=== PATIENT | male | born 1960 | race Caucasian/White ===

== ENCOUNTER 2025-09-01 14:07 | Outpatient (AMB) | payer MEDICARE, SELFPAY ==
--- OUTSIDE RECORDS SUMMARY | 2024-12-07 03:32 | XMS_ITS ---
[facility] Address [address] [place] [address] Care Team Providers Care Stockroom Attendant Name Role Phone Filipe Duenas Primary Care Provider REASON FOR VISIT Refills MEDICATIONS Medication SIG (Take, Route, Frequency, Duration) Notes Start Date End Date Status clonazePAM 0.5 MG 1 tablet Orally Twic e a day for 90 Days 12/07/2024 Active QUEtiapine Fumarate 25 MG 1 tablet at be dtime Orally Once a day for 90 days Active Encounters Encounter Location Date Provider [facility] [address] [place] [address] 12/07/2024 Filipe Duenas Anxiety disorder, unspecified F41.9 ASSESSMENTS Encounter Date Diagnosis Assessment Notes Treatment Notes Treatment Clinical Notes Section Notes 12/07/2024 Anxiety disorder, unspecified (ICD-10 - F41.9) PLAN OF TREATMENT Medication Medication Name Sig Start Date Stop Date Notes clonazePAM 0.5 MG 1 tablet Orally Twic e a day for 90 Days 12/07/2024 QUEtiapine Fumarate 25 MG 1 tablet at be dtime Orally Once a day for 90 days Next Appt Details Provider Name:Filipe covarrubias, 11/18/2025 03:45:00 PM, [address] [place], [address],
--- OUTSIDE RECORDS SUMMARY | 2025-02-09 11:15 | XMS_ITS ---
Author [facility] Address [address] [place] [address] Care Team Providers Care Shipfitter Apprentice Name Role Phone Filipe Duenas Primary Care Provider RESULTS Component Value Reference Range Notes Luteinizing Hormone(LH)-[id number] Reviewed date:04/18/2025 11:49:28 AM Interpretation: Performing Lab:[facility] [address], Phone - [phone], Director - [facility] Notes/Report: Test(s) 073609-Irhxibqdfule, Total, LC/MS was developed and its performance characteristics determined by [employer]. It has not been cleared or approved by the Food and Drug Administration. LH 5.1 1.7-8.6 mIU/mL Testosterone, Free+Total LC/ MS-[id number] Reviewed date:04/18/2025 11:49:28 AM Interpretation: Performing Lab:[facility] [address], Phone - [phone], Director - [facility] Notes/Report: Test(s) 104935-Pfheteculbaf, Total, LC/MS was developed and its performance characteristics determined by [employer]. It has not been cleared or approved by the Food and Drug Administration. Testosterone, Total, LC/MS 666.1 264.0-916.0 ng /dL This [facility] LC/MS-MS method is currently certified by the CDC Hormone Standardization Program (HoSt). Adult male reference interval is based on a population of healthy nonobese males (BMI <30) between 19 and 39 years old. Lucero et.al. JCEM 2017,102;9524-0950. PMID: 51790185. Free Testosterone(Direct) 7.0 6.6-18.1 pg/mL REASON FOR VISIT (IN OFFICE), Follow Up MEDICATIONS Medication SIG (Take, Route, Frequency, Duration) Notes Start Date End Date Status Pantoprazole Sodium 40 MG 1 tablet Orall y Once a day Active Proctosol HC 2.5 % 1 application to aff ected area Rectal Twice a day 04/08/2018 Active Stiolto Respimat 2.5-2.5 MCG/ACT INHALE 2 PUFFS BY MOUTH EVERY DAY for 30 Active Venlafaxine HCl ER 150 MG TAKE 1 CAPSULE BY MOUTH EVERY DAY WITH FOOD Active Megestrol Acetate 40 MG/ML SHAKE LIQUID AND TAKE 10 ML BY MOUTH TWICE DAILY for 90 Active Venlafaxine HCl ER 150 MG TAKE 1 CAPSULE BY MOUTH ONCE DAILY WITH FOOD 30 DAYS for 30 Active Vitamin D3 15601 UNIT 1 capsule Orally T wice a week Active Viagra 100 MG 1 tablet as needed O rally Once a day Active clonazePAM 0.5 MG 1 tablet as needed O rally Twice a day for 30 days 02/09/2025 Active CoQ10 200 MG 1 capsule with a fox l Orally Once a day Active QUEtiapine Fumarate 25 MG TAKE 1 TABLET BY MOUTH EVERY DAY AT BEDTIME Active QUEtiapine Fumarate 25 MG 1 tablet at be dtime Orally Once a day for 90 days Active Stiolto Respimat 2.5-2.5 MCG/ACT 2 puffs Inhalation Once a day Active ProAir HFA 108 (90 Base) MCG/ACT 2 puffs as needed Inhalation every 6 hrs Active VITAL SIGNS Blood pressure systolic 110 mm Hg 02/10/20 25 Blood pressure diastolic 64 mm Hg 025 Heart Rate 78 /min 02/09/2025 Height 71 in 02/09/2025 Weight 161.6 lbs 02/09/2025 BMI 22.54 kg/m2 02/09/2025 Encounters Encounter Location Date Provider Diagnosis [facility]ARREN Saini [address] [place] [phone] 02/09/2025 Filipe Duenas Major depressive disorder, single episode, unspecified F32.9 ; Mixed hyperlipidemia E78.2 ; Erectile dysfunction, unspecified erectile dysfunction type N52.9 ; Cancer, 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 ; Anxiety disorder, unspecified F41.9 ; Chronic obstructive pulmonary disease, unspecified COPD type J44.9 ; Primary insomnia F51.01 ; Anxiety F41.9 ; Chronic fatigue R53.82 ; Vitamin D deficiency E55.9 and Tobacco abuse Z72.0 ASSESSMENTS Encounter Date Diagnosis Assessment Notes Treatment Notes Treatment Clinical Notes Section Notes 02/09/2025 Major depressive disorder, single episode, unspecified (ICD-10 - F32.9) 02/09/2025 Mixed hyperlipidemia (ICD-10 - E78.2) 02/09/2025 Erectile dysfunction, unspecified erectile dysfunction type (ICD-10 - N52.9) 02/09/2025 Cancer, epiglottis (ICD-10 - C32.1) 02/09/2025 Anxiety disorder, unspecified (ICD-10 - F41.9) 02/09/2025 Chronic obstructive pulmonary disease, unspecified COPD type (ICD-10 - J44.9) 02/09/2025 Primary insomnia (ICD-10 - F51.01) 02/09/2025 Anxiety (ICD-10 - F41.9) 02/09/2025 Chronic fatigue (ICD-10 - R53.82) 02/09/2025 Vitamin D deficiency (ICD-10 - E55.9) 02/09/2025 Tobacco abuse (ICD-10 - Z72.0) 02/09/2025 Other This chart has been transcribed by a computerized dictation system. There are likely to be multiple geological manager inaccuracies despite chart review. PLAN OF TREATMENT Medication Medication Name Sig Start Date Stop Date Notes Pantoprazole Sodium 40 MG 1 tablet Orally Once a day Venlafaxine HCl ER 150 MG TAKE 1 CAPSULE BY MOUTH EVERY DAY WITH FOOD Vitamin D3 61512 UNIT 1 capsule Orally T wice a week Viagra 100 MG 1 tablet as needed O rally Once a day clonazePAM 0.5 MG 1 tablet as needed O rally Twice a day for 30 days 02/09/2025 CoQ10 200 MG 1 capsule with a fox l Orally Once a day QUEtiapine Fumarate 25 MG TAKE 1 TABLET BY MOUTH EVERY DAY AT BEDTIME Stiolto Respimat 2.5-2.5 MCG/ACT 2 puffs Inhalation Once a day ProAir HFA 108 (90 Base) MCG/ACT 2 puffs as needed Inhalation every 6 hrs Treatment Notes Assessment Notes Other This chart has been transcribed by a computerized dictation system. There are likely to be multiple geological manager inaccuracies despite chart review. Next Appt Details Follow Up: 4 Weeks, Reason: Follow-up Provider Name:Filipe covarrubias, 11/18/2025 03:45:00 PM, [address] [place] [address], [phone], MEDICATIONS ADMINISTERED Medication Instructions Date of Administration Dosage Notes B12 02/09/2025 1 mL Progress Notes * Examination Category Sub-Category Detail Notes Category Not es General Examination GENERAL APPEARANCE: in no ac [place] distress, well developed, well nourished HEAD: normocephalic, atrau matic EYES: pupils equal, round, reactive to light and accommodation THROAT: clear, no erythema, uvula midline, no exudate NECK/THYROID: neck supple, no thyr omegaly, trachea midline, no carotid bruit HEART: no murmurs, regular rate and rhythm, S1, S2 normal LUNGS: clear to auscultatio n bilaterally ABDOMEN: soft, nontender, non distended, no organomegaly , bowel sounds present NEUROLOGIC: alert and oriented x 3, nonfocal SKIN: no suspicious lesion s, warm and dry EXTREMITIES: no clubbing, cyanosi s, or edema PERIPHERAL PULSES: normal, 2+ throughou t MUSCULOSKELETAL: normal, full range o f motion LYMPH NODES: no cervical, axillar y, supraclavicular or inguinal adenopathy PSYCH: cognitive function i ntact, mood/affect full range ORAL CAVITY: mucosa moist, no les ions, palate normal, tongue in midline, well papillated History and Physical Notes * HPI (History of Present Illness) Category Sub-Category Detail Notes Category Not es Symptom(s) 65-year-old mal e patient with history of epiglottic cancer status post RT, anxiety, depression, hyperlipidemia, COPD, and postural hypotension is here for follow-up. Today he tells me that his a stopped taking Florinef and metolazone. His blood pressure is well controlled. He complains of increased fatigue. I discussed his lab results with him which show low vitamin B12 level. I advised the patient to start B12 injections and he received his first injection today. His chronic respiratory symptoms are well-controlled on current inhalers. Patient's anxiety and depression is a stable on current medications. He denies chest pain, palpitation, shortness of breath. Patient is interested to know if he is known testosterone which could be contributing to his chronic fatigue. I ordered testosterone and luteinizing hormone to be done at his convenience.
--- OUTSIDE RECORDS SUMMARY | 2025-03-15 10:45 | XMS_ITS ---
Author Organization [facility], Address [address] [place] [address] Care Team Providers Care Technician Semiconductor Development Name Role Phone Filipe Duenas Primary Care Provider ALLERGIES No Known Allergies REASON FOR VISIT (IN OFFICE), Follow Up MEDICATIONS Medication SIG (Take, Route, Frequency, Duration) Notes Start Date End Date Status CoQ10 200 MG 1 capsule with a fox l Orally Once a day Active clonazePAM 0.5 MG 1 tablet as needed O rally Twice a day for 30 days Active Proctosol HC 2.5 % 1 application to aff ected area Rectal Twice a day 04/08/2018 Active Megestrol Acetate 40 MG/ML SHAKE LIQUID AND TAKE 10 ML BY MOUTH TWICE DAILY for 90 Active Stiolto Respimat 2.5-2.5 MCG/ACT INHALE 2 PUFFS BY MOUTH EVERY DAY for 30 Active Pantoprazole Sodium 40 MG 1 tablet Orall y Once a day Active Venlafaxine HCl ER 150 MG TAKE 1 CAPSULE BY MOUTH EVERY DAY WITH FOOD Active ProAir HFA 108 (90 Base) MCG/ACT 2 puffs as needed Inhalation every 6 hrs Active Stiolto Respimat 2.5-2.5 MCG/ACT 2 puffs Inhalation Once a day Active QUEtiapine Fumarate 25 MG TAKE 1 TABLET BY MOUTH EVERY DAY AT BEDTIME Active Viagra 100 MG 1 tablet as needed O rally Once a day Active Vitamin D3 66692 UNIT 1 capsule Orally T wice a week Active QUEtiapine Fumarate 25 MG TAKE 1 TABLET BY MOUTH EVERY DAY AT BEDTIME FOR 90 DAYS for 90 Active Venlafaxine HCl ER 150 MG TAKE 1 CAPSULE BY MOUTH ONCE DAILY WITH FOOD 30 DAYS for 30 Active clonazePAM 0.5 MG TAKE 1 TABLET BY FREDY TH TWICE DAILY for 30 03/12/2025 Active VITAL SIGNS Blood pressure systolic 110 mm Hg 03/15/20 25 Blood pressure diastolic 68 mm Hg 025 Heart Rate 76 /min 03/15/2025 Height 71 in 03/15/2025 Weight 161 lbs 03/15/2025 BMI 22.45 kg/m2 03/15/2025 Encounters Encounter Location Date Provider Diagnosis [facility] [address] 03/15/2025 Filipe Duenas Major depressive disorder, single episode, [...] Treatment Notes Treatment Clinical Notes Section Notes 03/15/2025 Major depressive disorder, single episode, unspecified (ICD-10 - F32.9) 03/15/2025 Mixed hyperlipidemia (ICD-10 - E78.2) 03/15/2025 Erectile dysfunction, unspecified erectile dysfunction type (ICD-10 - N52.9) 03/15/2025 Cancer, epiglottis (ICD-10 - C32.1) 03/15/2025 Anxiety disorder, unspecified (ICD-10 - F41.9) 03/15/2025 Chronic obstructive pulmonary disease, unspecified COPD type (ICD-10 - J44.9) 03/15/2025 Primary insomnia (ICD-10 - F51.01) 03/15/2025 Anxiety (ICD-10 - F41.9) 03/15/2025 Chronic fatigue (ICD-10 - R53.82) 03/15/2025 Vitamin D deficiency (ICD-10 - E55.9) 03/15/2025 Tobacco abuse (ICD-10 - Z72.0) 03/15/2025 Other This chart has been transcribed by a computerized dictation system. There are likely to be multiple drive thru order taker inaccuracies despite chart review. PLAN OF TREATMENT Medication Medication Name Sig Start Date Stop Date Notes CoQ10 200 MG 1 capsule with a fox l Orally Once a day clonazePAM 0.5 MG 1 tablet as needed O rally Twice a day for 30 days Pantoprazole Sodium 40 MG 1 tablet Orally Once a day Venlafaxine HCl ER 150 MG TAKE 1 CAPSULE BY MOUTH EVERY DAY WITH FOOD ProAir HFA 108 (90 Base) MCG/ACT 2 puffs as needed Inhalation every 6 hrs Stiolto Respimat 2.5-2.5 MCG/ACT 2 puffs Inhalation Once a day QUEtiapine Fumarate 25 MG TAKE 1 TABLET BY MOUTH EVERY DAY AT BEDTIME Viagra 100 MG 1 tablet as needed O rally Once a day Vitamin D3 42898 UNIT 1 capsule Orally T wice a week Treatment Notes Assessment Notes Other This chart has been transcribed by a computerized dictation system. There are likely to be multiple drive thru order taker inaccuracies despite chart review. Next Appt Details Follow Up: 4 Weeks, Reason: Follow-up Provider Name:Filipe covarrubias, 11/18/2025 03:45:00 PM, [address] [place] [address], [phone], MEDICATIONS ADMINISTERED Medication Instructions Date of Administration Dosage Notes B12 03/15/2025 1.0 mL Progress Notes * Examination Category Sub-Category Detail Notes Category Not es General Examination GENERAL APPEARANCE: in no ac [place] distress, well developed, well nourished HEAD: normocephalic, [...] and postural hypotension is here for follow-up. Patient tells me that he's feeling somewhat more energetic since he started getting B12 injections last month. He was supposed to check his testosterone level but forgot about it. I encouraged him to get his absolute as soon as possible. He denies chest pain, palpitation, shortness of breath. His GERD symptoms are well-controlled on current dose of pantoprazole.
--- OUTSIDE RECORDS SUMMARY | 2025-03-29 09:12 | XMS_ITS ---
[facility] Address [address] [place] [address] Care Team Providers Care Size Worker Name Role Phone Filipe Duenas Primary Care Provider REASON FOR VISIT refill MEDICATIONS Medication SIG (Take, Route, Frequency, Duration) Notes Start Date End Date Status Venlafaxine HCl ER 150 MG 1 capsule with food Orally Once a day for 90 Days Active Encounters Encounter Location Date Provider [facility] [address] [place] [address] 03/29/2025 Filipe Duenas Major depressive disorder, single episode, unspecified F32.9 ASSESSMENTS Encounter Date Diagnosis Assessment Notes Treatment Notes Treatment Clinical Notes Section Notes 03/29/2025 Major depressive disorder, single episode, unspecified (ICD-10 - F32.9) PLAN OF TREATMENT Medication Medication Name Sig Start Date Stop Date Notes Venlafaxine HCl ER 150 MG TAKE 1 CAPSULE BY MOUTH ONCE DAILY WITH FOOD 30 DAYS Stiolto Respimat 2.5-2.5 MCG/ACT INHALE 2 PUFFS BY MOUTH EVERY DAY Venlafaxine HCl ER 150 MG 1 capsule with food Orally Once a day for 90 Days Next Appt Details Provider Name:Filipe covarrubias, 11/18/2025 03:45:00 PM, [address] [place], [address],
--- OUTSIDE RECORDS SUMMARY | 2025-04-14 10:45 | XMS_ITS ---
Author Organization [facility], Address [address] [place] [address] Care Team Providers Care Arc And Gas Welder Name Role Phone Filipe Duenas Primary Care Provider REASON FOR VISIT (IN OFFICE), Follow Up MEDICATIONS Medication SIG (Take, Route, Frequency, Duration) Notes Start Date End Date Status Megestrol Acetate 40 MG/ML SHAKE LIQUID AND TAKE 10 ML BY MOUTH TWICE DAILY for 90 Active Vitamin D3 08189 UNIT 1 capsule Orally T wice a week Active clonazePAM 0.5 MG TAKE 1 TABLET BY FREDY TH TWICE DAILY for 30 03/12/2025 Active Viagra 100 MG 1 tablet as needed O rally Once a day Active QUEtiapine Fumarate 25 MG TAKE 1 TABLET BY MOUTH EVERY DAY AT BEDTIME FOR 90 DAYS for 90 Active QUEtiapine Fumarate 25 MG TAKE 1 TABLET BY MOUTH EVERY DAY AT BEDTIME Active Stiolto Respimat 2.5-2.5 MCG/ACT 2 puffs Inhalation Once a day Active Proctosol HC 2.5 % 1 application to aff ected area Rectal Twice a day 04/08/2018 Active clonazePAM 0.5 MG 1 tablet as needed O rally Twice a day for 30 days Active CoQ10 200 MG 1 capsule with a fox l Orally Once a day Active ProAir HFA 108 (90 Base) MCG/ACT 2 puffs as needed Inhalation every 6 hrs Active Venlafaxine HCl ER 150 MG TAKE 1 CAPSULE BY MOUTH EVERY DAY WITH FOOD Active Pantoprazole Sodium 40 MG 1 tablet Orall y Once a day Active VITAL SIGNS Blood pressure systolic 120 mm Hg 04/14/20 25 Blood pressure diastolic 80 mm Hg 025 Heart Rate 80 /min 04/14/2025 Height 71 in 04/14/2025 Weight 166 lbs 04/14/2025 BMI 23.15 kg/m2 04/14/2025 Encounters Encounter Location Date Provider Diagnosis [facility] [address] [address] 04/14/2025 Filipe Duenas Major depressive disorder, single episode, [...] Treatment Notes Treatment Clinical Notes Section Notes 04/14/2025 Major depressive disorder, single episode, unspecified (ICD-10 - F32.9) 04/14/2025 Mixed hyperlipidemia (ICD-10 - E78.2) 04/14/2025 Erectile dysfunction, unspecified erectile dysfunction type (ICD-10 - N52.9) 04/14/2025 Cancer, epiglottis (ICD-10 - C32.1) 04/14/2025 Anxiety disorder, unspecified (ICD-10 - F41.9) 04/14/2025 Chronic obstructive pulmonary disease, unspecified COPD type (ICD-10 - J44.9) 04/14/2025 Primary insomnia (ICD-10 - F51.01) 04/14/2025 Anxiety (ICD-10 - F41.9) 04/14/2025 Chronic fatigue (ICD-10 - R53.82) 04/14/2025 Vitamin D deficiency (ICD-10 - E55.9) 04/14/2025 Tobacco abuse (ICD-10 - Z72.0) 04/14/2025 Other This chart has been transcribed by a computerized dictation system. There are likely to be multiple podiatric assistant inaccuracies despite chart review. PLAN OF TREATMENT Medication Medication Name Sig Start Date Stop Date Notes Vitamin D3 17133 UNIT 1 capsule Orally T wice a week Viagra 100 MG 1 tablet as needed O rally Once a day QUEtiapine Fumarate 25 MG TAKE 1 TABLET BY MOUTH EVERY DAY AT BEDTIME Stiolto Respimat 2.5-2.5 MCG/ACT 2 puffs Inhalation Once a day clonazePAM 0.5 MG 1 tablet as needed O rally Twice a day for 30 days CoQ10 200 MG 1 capsule with a fox l Orally Once a day ProAir HFA 108 (90 Base) MCG/ACT 2 puffs as needed Inhalation every 6 hrs Venlafaxine HCl ER 150 MG TAKE 1 CAPSULE BY MOUTH EVERY DAY WITH FOOD Pantoprazole Sodium 40 MG 1 tablet Orally Once a day Treatment Notes Assessment Notes Other This chart has been transcribed by a computerized dictation system. There are likely to be multiple podiatric assistant inaccuracies despite chart review. Next Appt Details Follow Up: 4 Weeks, Reason: Follow-up [facility] Dr[facility] Duenas Provider Name:Filipe covarrubias, 11/18/2025 03:45:00 PM, [address] [place] [address], [phone], MEDICATIONS ADMINISTERED Medication Instructions Date of Administration Dosage Notes B12 04/14/2025 1.0 mL Progress Notes * Examination Category Sub-Category Detail Notes Category Not es General Examination GENERAL APPEARANCE: in no ac [place] distress, well developed, well nourished HEAD: normocephalic, [...] and postural hypotension is here for follow-up. She tells me that he gave his labs yesterday and the results are pending. He also tells me that he has a started feeling better since he has been getting B12 injections. Today he complains of muscle cramps. I advised him to try [id number] magnesium glycinate. I advised him to increase his electrolyte intake. Patient's anxiety and depression is well-controlled with current medications. His insomnia is is well controlled on current medications. He denies chest pain, palpitation, or shortness of breath.
--- OUTSIDE RECORDS SUMMARY | 2025-05-12 10:45 | XMS_ITS ---
Author Organization [facility] Address [address] [place] [address] Care Team Providers Care Pari Mutuel Clerk Name Role Phone Filipe Duenas Primary Care Provider [phone] ALLERGIES No Known Allergies RESULTS Component Value Reference Range Notes Iron and TIBC-[id number] Reviewed date:05/13/2025 12:42:34 PM Interpretation: Performing Lab:[facility], [address] [facility], Phone - [phone], Director - MDJodry Notes/Report: Iron Bind.Cap.(TIBC) 277 250-450 ug/dL UIBC 200 111-343 ug/dL Iron 77 38-169 ug/dL Iron Saturation 28 15-55 % Ferritin-[id number] Reviewed date:05/13/2025 12:42:34 PM Interpretation: Performing Lab:[facility], [address] [facility], Phone - [phone], Director - MDJodry Notes/Report: Ferritin 168 30-400 ng/mL Vitamin D, 84-[id number] Reviewed date:05/13/2025 12:42:35 PM Interpretation: Performing Lab:[facility], [address] [facility], Phone - [phone], Director - MDJodry Notes/Report: Vitamin D, 25-Hydroxy 10.0 30.0-100.0 ng/mL Vitamin D deficiency has been defined by the [facility] and an Endocrine Society practice guideline as a level of serum 25-OH vitamin D less than 20 ng/mL (1,2). The Endocrine Society went on to further define vitamin D insufficiency as a level between 21 and 29 ng/mL (2). 1. IOM ([facility]). 2010. Dietary reference intakes for calcium and D. [place]: The National Academies Press. 2. Lidia MF, Heather BELLA, Betsey HUTCHINSON, et al. Evaluation, treatment, and prevention of vitamin D deficiency: an Endocrine Society clinical practice guideline. JCEM. 2010; 96(7):1911-30. Vitamin B12 and Folate-91909 0 Reviewed date:05/13/2025 12:42:35 PM Interpretation: Performing Lab:[facility], [address] [place] [address], Phone - [phone], Director - [facility] Notes/Report: Vitamin B12 >2000 232-1245 pg/mL Folate (Folic Acid), Serum 5.3 >3.0 ng/mL A serum folate concentration of less than 3.1 ng/mL is considered to represent clinical deficiency. CBC with Diff, Platelet, NLR -[id number] Reviewed date:05/13/2025 12:42:35 PM Interpretation: Performing Lab:[facility], [address] [place] [address], [facility], Phone - [phone], [facility] Notes/Report: WBC 6.5 3.4-10.8 x10E3/uL RBC 5.08 4.14-5.80 x10E6/uL Hemoglobin 15.5 13.0-17.7 g/dL Hematocrit 46.9 37.5-51.0 % MCV 92 79-97 fL MCH 30.5 26.6-33.0 pg MCHC 33.0 31.5-35.7 g/dL RDW 15.6 11.6-15.4 % Platelets 175 150-450 x10E3/uL Neutrophils 61 Not Estab. % Lymphs 25 Not Estab. % Monocytes 11 Not Estab. % Eos 2 Not Estab. % Basos 1 Not Estab. % Immature Cells Neutrophils (Absolute) 4.0 1.4-7.0 x10E3/uL Lymphs (Absolute) 1.6 0.7-3.1 x10E3/uL Neut/Lymph Ratio 2.5 0.0-2.9 ratio Published COVID-19 studies suggest: Low likelihood of severe COVID-19 disease progression 0.0-2.9 High likelihood of severe COVID-19 disease progression >4.9 Monocytes(Absolute) 0.7 0.1-0.9 x10E3/uL Eos (Absolute) 0.1 0.0-0.4 x10E3/uL Baso (Absolute) 0.1 0.0-0.2 x10E3/uL Immature Granulocytes 0 Not Estab. % Immature Grans (Abs) 0.0 0.0-0.1 x10E3/uL NRBC Hematology Comments: REASON FOR VISIT (IN OFFICE), Follow Up MEDICATIONS Medication SIG (Take, Route, Frequency, Duration) Notes Start Date End Date Status CoQ10 200 MG 1 capsule with a fox l Orally Once a day Active clonazePAM 0.5 MG 1 tablet as needed O rally Twice a day for 30 days Active Stiolto Respimat 2.5-2.5 MCG/ACT 2 puffs Inhalation Once a day Active QUEtiapine Fumarate 25 MG TAKE 1 TABLET BY MOUTH EVERY DAY AT BEDTIME Active ProAir HFA 108 (90 Base) MCG/ACT 2 puffs as needed Inhalation every 6 hrs Active Venlafaxine HCl ER 150 MG TAKE 1 CAPSULE BY MOUTH EVERY DAY WITH FOOD Active Pantoprazole Sodium 40 MG 1 tablet Orall y Once a day Active Viagra 100 MG 1 tablet as needed O rally Once a day Active Vitamin D3 79749 UNIT 1 capsule Orally T wice a week Active clonazePAM 0.5 MG TAKE 1 TABLET BY FREDY TH TWICE DAILY for 30 03/12/2025 Active Proctosol HC 2.5 % 1 application to aff ected area Rectal Twice a day 04/08/2018 Active Megestrol Acetate 40 MG/ML SHAKE LIQUID AND TAKE 10 ML BY MOUTH TWICE DAILY for 90 Active Vitamin B12 1000 MCG 1 tablet Orally Onc e a day for 90 Days 05/12/2025 Active QUEtiapine Fumarate 25 MG TAKE 1 TABLET BY MOUTH EVERY DAY AT BEDTIME FOR 90 DAYS for 90 Active VITAL SIGNS Blood pressure systolic 120 mm Hg 05/12/20 25 Blood pressure diastolic 80 mm Hg 025 Heart Rate 84 /min 05/12/2025 Height 71 in 05/12/2025 Weight 163.8 lbs 05/12/2025 BMI 22.84 kg/m2 05/12/2025 Encounters Encounter Location Date Provider Diagnosis [address] [address] 05/12/2025 Filipe Duenas Major depressive disorder, single episode, unspecified F32.9 ; Mixed hyperlipidemia E78.2 ; Erectile dysfunction, unspecified erectile dysfunction type N52.9 ; Cancer, 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 ; Anxiety disorder, unspecified F41.9 ; Chronic obstructive pulmonary disease, unspecified COPD type J44.9 ; Primary insomnia F51.01 ; Anxiety F41.9 ; Chronic fatigue R53.82 ; Vitamin D deficiency E55.9 ; Tobacco abuse Z72.0 and Vitamin B12 deficiency E53.8 ASSESSMENTS Encounter Date Diagnosis Assessment Notes Treatment Notes Treatment Clinical Notes Section Notes 05/12/2025 Major depressive disorder, single episode, unspecified (ICD-10 - F32.9) 05/12/2025 Mixed hyperlipidemia (ICD-10 - E78.2) 05/12/2025 Erectile dysfunction, unspecified erectile dysfunction type (ICD-10 - N52.9) 05/12/2025 Cancer, epiglottis (ICD-10 - C32.1) 05/12/2025 Anxiety disorder, unspecified (ICD-10 - F41.9) 05/12/2025 Chronic obstructive pulmonary disease, unspecified COPD type (ICD-10 - J44.9) 05/12/2025 Primary insomnia (ICD-10 - F51.01) 05/12/2025 Anxiety (ICD-10 - F41.9) 05/12/2025 Chronic fatigue (ICD-10 - R53.82) 05/12/2025 Vitamin D deficiency (ICD-10 - E55.9) 05/12/2025 Tobacco abuse (ICD-10 - Z72.0) 05/12/2025 Vitamin B12 deficiency (ICD-10 - E53.8) 05/12/2025 Other This chart has been transcribed by a computerized dictation system. PLAN OF TREATMENT Medication Medication Name Sig Start Date Stop Date Notes CoQ10 200 MG 1 capsule with a fox l Orally Once a day clonazePAM 0.5 MG 1 tablet as needed O rally Twice a day for 30 days Stiolto Respimat 2.5-2.5 MCG/ACT 2 puffs Inhalation Once a day QUEtiapine Fumarate 25 MG TAKE 1 TABLET BY MOUTH EVERY DAY AT BEDTIME ProAir HFA 108 (90 Base) MCG/ACT 2 puffs as needed Inhalation every 6 hrs Venlafaxine HCl ER 150 MG TAKE 1 CAPSULE BY MOUTH EVERY DAY WITH FOOD Pantoprazole Sodium 40 MG 1 tablet Orally Once a day Viagra 100 MG 1 tablet as needed O rally Once a day Vitamin D3 29795 UNIT 1 capsule Orally T wice a week Vitamin B12 1000 MCG 1 tablet Orally Onc e a day for 90 Days 05/12/2025 Treatment Notes Assessment Notes Other This chart has been transcribed by a computerized dictation system. Next Appt Details Follow Up: 3 Months, Reason: Follow-up wi Dr. Duenas Provider Name:Filipe covarrubias, 11/18/2025 03:45:00 PM, [address] [place] [address], [phone], Progress Notes * Examination Category Sub-Category Detail Notes Category Not es General Examination GENERAL APPEARANCE: in no ac andrea distress, well developed, well nourished HEAD: normocephalic, [...] postural hypotension is here for follow-up. Patient has a started feeling more energetic since he has been getting B12 injections at her office. I discussed his lab results with him during the visit exchange in that his testosterone level is quite good considering his age. He doesn't at the weekdays he is feeling fine but weekends he feels very tired. Patient has a very physical job. In 2 gets frequent breaks while he is at work. I ordered repeat CBC and ferritin iron studies B12 and vitamin D and folic acid to be done today. Advise patient to start taking oral B12. His anxiety and depression is well controlled. He denies chest pain, palpitation, or shortness of breath.
--- OUTSIDE RECORDS SUMMARY | 2025-06-17 09:25 | XMS_ITS ---
Author Organization [facility] Address [address] [place] [address] Care Team Providers Care X Ray Technician Name Role Phone Filipe Duenas Primary Care Provider [phone] REASON FOR VISIT temp rx MEDICATIONS Medication SIG (Take, Route, Fr equency, Duration) Notes Start Date End Date Status clonazePAM 0.5 MG 1 tablet as needed O rally Twice a day for 3 days 06/17/2025 Active Encounters Encounter Location Date Provider [facility] [address] [place] [address] 06/17/2025 Filipe Duenas Anxiety disorder, unspecified F41.9 ASSESSMENTS Encounter Date Diagnosis Assessment Notes Treatment Notes Treatment Clinical Notes Section Notes 06/17/2025 Anxiety disorder, unspecified (ICD-10 - F41.9) PLAN OF TREATMENT Medication Medication Name Sig Start Date Stop Date Notes clonazePAM 0.5 MG 1 tablet as needed O rally Twice a day for 3 days 06/17/2025 Next Appt Details Provider Name:Filipe covarrubias, 11/18/2025 03:45:00 PM, [address] [place], [phone],
--- OUTSIDE RECORDS SUMMARY | 2025-06-24 04:16 | XMS_ITS ---
Author Organization [facility] Address [address] [place] [address] Care Team Providers Care Guitar Player Name Role Phone Filipe Duenas Primary Care Provider [phone] REASON FOR VISIT Refills MEDICATIONS Medication SIG (Take, Route, Fr equency, Duration) Notes Start Date End Date Status clonazePAM 0.5 MG 1 tablet as needed O rally Twice a day for 30 days 06/24/2025 Active Encounters Encounter Location Date Provider [facility] [address] [place] [address] 06/24/2025 Filipe Duenas Anxiety disorder, unspecified F41.9 ASSESSMENTS Encounter Date Diagnosis Assessment Notes Treatment Notes Treatment Clinical Notes Section Notes 06/24/2025 Anxiety disorder, unspecified (ICD-10 - F41.9) PLAN OF TREATMENT Medication Medication Name Sig Start Date Stop Date Notes clonazePAM 0.5 MG 1 tablet as needed O rally Twice a day for 30 days 06/24/2025 Next Appt Details Provider Name:Filipe covarrubias, 11/18/2025 03:45:00 PM, [address] [place] [address], [phone],
--- OUTSIDE RECORDS SUMMARY | 2025-08-11 11:00 | XMS_ITS ---
Author Organization [facility] Address [address] [place] [address] Care Team Providers Care Experienced Truck Driver Name Role Phone Filipe Duenas Primary Care Provider REASON FOR VISIT (IN OFFICE), Follow Up Encounters Encounter Location Date Provider Diagnosis [facility] [address] [place] [address] 08/11/20 Filipe Duenas PLAN OF TREATMENT Next Appt Details Provider Name:Filipe covarrubias, 11/18/2025 03:45:00 PM, [address] [place], [address],
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
--- NOTE | 2025-09-01 14:10 | AM.OFFWIN_ITS ---
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 Allergies No Known Allergies Allergy (Verified 09/01/25 14:18) HPI TOP KNITTER-metal object stuck rt side of face 2 HPI0 Details 65 year old male patient presents to the [place] [facility] with report of a metal object stuck in his cheek. He states that About 2 weeks ago, he was doing some work cutting stone, and using a maddy blade cutter, and 2 of the teeth from the blade came off, and he thinks that one hit him in the right side of his cheek. At the time, he felt that the injury was just superficial, and he treated the external injury, which ultimately scabbed and has fallen off. Recently however, he has felt a protrusion on the inside of his mouth on the lateral aspect of his right gums. He stated the upon looking in the mirror, he can see the tooth blade lodged in his gums. He is up-to-date on the tetanus vaccine. Denies any fevers / chills. States that the inside of his mouth on that right side does feel swollen. Review of Systems Const All systems reviewed & are unremarkable except as noted in HPI and below Physical Exam Vital Signs: Last Vital Signs Pulse 94 09/01/25 14:13 BP 102/78 09/01/25 14:13 Pulse Ox 95 09/01/25 14:13 Oxygen Delivery Method Room Air 09/01/25 14:13 BMI result Body Mass Index 23.7 Const General: cooperative, healthy appearing and no acute distress HEENT Head: Yes normal to inspection Ears: hearing grossly normal bilaterally General nose exam: Normal external nose present Mouth/tongue images: 2 1. foreign object Teeth and gingiva: abnormal tooth and associated gingiva (multiple teeth removed, foreign object visible/lodged in r side of oral muc) Throat: Yes posterior oropharynx normal Neck Neck: Yes no lymphadenopathy Resp Effort & Inspection: normal respiratory effort Skin General skin exam: no rashes or lesions noted Psych Appearance: grossly normal Mental Status: mental status grossly normal Speech and movement: Normal speech and movement present Assessment & Plan Assessment & Plan (1) Metal foreign body in mouth: Code(s): S00.552A - Superficial foreign body of oral cavity, initial encounter Plan: I advised patient to go to the ED for evaluation as he will likely require CT scan prior to removal of this foreign metal object in his mouth. Patient states he will go to [employer], however likely not tonight. I encouraged he go as soon as possible. He states he will go tomorrow after work. Up to date on TDAP. Coding Level of Care Code Est Pt Level 4 (90033) Diagnoses Metal foreign body in mouth S00.552A
[2025-09-01 14:13] VITALS: BP 102/78; PULSE 94; O2SAT 95; BMI 23.7
--- OUTSIDE RECORDS SUMMARY | 2025-09-02 02:29 | XMS_ITS | Clinical Summary ---
Author Organization [facility] Address [address] [place] [id number] Phone Care Team Providers Care Thermo Cementing Folder Operator Name Role Phone Filipe Duenas MD Primary Care Provider Social History Tobacco Use Types Packs/Day Years Used Date Smoking Tobacco: Never Assessed Education Answer Date Recorded Are you interested in more education? Not on écsar e 2023 Are you concerned about learning? Not on file 2023 No 2023 No 2023 Digital Access Answer Date Recorded No 03/09/2023 No 03/09/2023 No 03/09/2023 Reliable internet access at home? Not on file 03/09/2023 Device with a working camera? Not on file Sex and Gender Information Value Date Recorded Sex Assigned at Not on file Legal Sex Male 9:21 AM EDT Gender Identity Not on file Sexual Orientation Not on file Plan of Treatment Health Maintenance Due Date Last Done Comments Adult Td,Tdap Booster 1960 LIPID PANEL 1960 DEPRESSION SCREENING 1972 SMOKING Hx and SMOKELESS TOBACCO SCREENING 02/07/1973 HEPATITIS C SCREENING 02/07/1978 HIV ONE-TIME SCREENING (18-65 YEARS) 02/07/1978 COLOGUARD 02/07/2005 COLONOSCOPY 02/07/2005 COLORECTAL CANCER SCREENING 02/07/2005 FIT TEST 02/07/2005 FOBT 02/07/2005 SIGMOIDOSCOPY 02/07/2005 VIRTUAL COLONOSCOPY 02/07/2005 ZOSTER VACCINES (1 of 2) 02/07/2010 PNEUMOCOCCAL VACCINES (50+ years) (2 of 2 - PCV) 11/14/2018 11/14/2017 INFLUENZA VACCINE (#1) 2025 0, 06/30/2019, 07/29/2018, Additional history exists COVID-19 VACCINE (2024- season) 2025 02/21/2021, 01/31/2021 RSV VACCINE (1 - 1-dose 75+ series) 02/07/2035 HEPATITIS A VACCINES Aged Out No long er eligible based on patient's age to complete this topic HIB VACCINES Aged Out No longer eligi ble based on patient's age to complete this topic MENINGOCOCCAL VACCINES (ACWY) Aged Out No longer eligible based on patient's age to complete this topic MENINGOCOCCAL VACCINES (B) Aged Out N o longer eligible based on patient's age to complete this topic Medical Devices Not on file Insurance O O O O O O Member Subscriber Plan / Payer (Ef fective 2018-Present) Name:Andrew Mckeon Relation to Subscriber:Self Name:Andrew Mckeon Payer ID:Not on file Type:HMO Address: [place] [id number] O O Member Subscriber Plan / Payer (Ef fective 2018-Present) Name:Andrew Mckeon Relation to Subscriber:Self Name:Andrew Mckeon Payer ID:Not on file Type:HMO Address: [place] [id number] O Member Subscriber Plan / Payer (Ef fective 2018-Present) Name:Andrew Mckeon Relation to Subscriber:Self Name:Andrew Mckeon Payer ID:Not on file Type:O Address: [place] [id number] Care Teams Thermo Cementing Folder Operator Relationship Specialty Start Date End Date Filipe Duenas MD PCP - General Internal Medicine 03/23/19 Additional Source Comments The information contained in this document represents components of the legal health record. It is not the complete legal health record.[facility]
--- OUTSIDE RECORDS SUMMARY | 2025-09-02 02:30 | XMS_ITS | Patient Health Record ---
[facility] Address [address] [place] [address] Care Team Providers Care Traffic Chief Name Role Phone Filipe Duenas Primary Care Provider [phone] ALLERGIES No Known Allergies RESULTS Component Value Reference Range Notes Luteinizing Hormone(LH)-0042 83 Reviewed date:04/18/2025 11:49:28 AM Interpretation: Performing Lab:[facility] [address] [place] [address], Phone - [phone], Director - [facility] Notes/Report: Test(s) 619562-Leifpnmbgkbm, Total, LC/MS was developed and its performance characteristics determined by [email or web address]. It has not been cleared or approved by the Food and Drug Administration. LH 5.1 1.7-8.6 mIU/mL Testosterone, Free+Total LC/ MS-199973 Reviewed date:04/18/2025 11:49:28 AM Interpretation: Performing Lab:[facility] [address] [place] [address], Phone - [phone], Director - Breanna Notes/Report: Test(s) 612158-Iwidmzrumpub, Total, LC/MS was developed and its performance characteristics determined by [email or web address]. It has not been cleared or approved by the Food and Drug Administration. Testosterone, Total, LC/MS 666.1 264.0-916.0 ng /dL This [facility] LC/MS-MS method is currently certified by the CDC Hormone Standardization Program (HoSt). Adult male reference interval is based on a population of healthy nonobese males (BMI <30) between 19 and 39 years old. Lucero et.al. JCEM 2017,102;4818-5776. PMID: 02445699. Free Testosterone(Direct) 7.0 6.6-18.1 pg/mL Iron and TIBC-640578 Reviewed date:05/13/2025 12:42:34 PM Interpretation: Performing Lab:[facility], [address] [place] [address], Phone - [phone], Director - [facility] Notes/Report: Iron Bind.Cap.(TIBC) 277 250-450 ug/dL UIBC 200 111-343 ug/dL Iron 77 38-169 ug/dL Iron Saturation 28 15-55 % Ferritin-350236 Reviewed date:05/13/2025 12:42:34 PM Interpretation: Performing [facility], [address] [place] [address], Phone - [phone], Director - [facility] Notes/Report: Ferritin 168 30-400 ng/mL Vitamin D, 77-Bhfarzp-915327 Reviewed date:05/13/2025 12:42:35 PM Interpretation: Performing [facility], [address] [place] [address], Phone - [phone], Director - [facility] Notes/Report: Vitamin D, 25-Hydroxy 10.0 30.0-100.0 ng/mL Vitamin D deficiency has been defined by the [place] of [employer] and an Endocrine Society practice guideline as a level of serum 25-OH vitamin D less than 20 ng/mL (1,2). The Endocrine Society went on to further define vitamin D insufficiency as a level between 21 and 29 ng/mL (2). 1. IOM ([place] of [employer]). 2010. Dietary reference intakes for calcium and D. [place]: The National Academies Press. 2. Lidia MF, Heather [place], Betsey HUTCHINSON, et al. Evaluation, treatment, and prevention of vitamin D deficiency: an Endocrine Society clinical practice guideline. JCEM. 2011 Apr; 96(7):1911-30. Vitamin B12 and Folate-85664 0 Reviewed date:05/13/2025 12:42:35 PM Interpretation: Performing Lab:[facility], [address] [place] [address], Phone - [phone], Director - [facility] Notes/Report: Vitamin B12 >2000 232-1245 pg/mL Folate (Folic Acid), Serum 5.3 >3.0 ng/mL A serum folate concentration of less than 3.1 ng/mL is considered to represent clinical deficiency. CBC with Diff, Platelet, NLR -[id number] Reviewed date:05/13/2025 12:42:35 PM Interpretation: Performing Lab:[facility], [address] [facility], Phone - [phone], Director - Prisca Notes/Report: WBC 6.5 3.4-10.8 x10E3/uL RBC 5.08 [...] (Abs) 0.0 0.0-0.1 x10E3/uL NRBC Hematology Comments: PSA Total+% Free-[id number] Reviewed date:02/09/2025 09:32:34 AM Interpretation: Performing Lab:[facility] [place], [address] [facility], [place], Phone - [phone], Director - Prisca Notes/Report: Prostate Specific Ag 0.3 0.0-4.0 ng/mL Pamela ECLIA methodology. . According to the [place] [employer], Serum PSA should decrease and remain at undetectable levels after radical prostatectomy. The AUA defines biochemical recurrence as an initial PSA value 0.2 ng/mL or greater followed by a subsequent confirmatory PSA value 0.2 ng/mL or greater. Values obtained with different assay methods or kits cannot be used interchangeably. Results cannot be interpreted as absolute evidence of the presence or absence of malignant disease. PSA, Free 0.08 N/A ng/mL Pamela ECLIA met hodology. % Free PSA 26.7 The table below lists the probability of prostate cancer for men with non-suspicious [place] results and total PSA between 4 and 10 ng/mL, by patient age (Magen et al, BROCK 1998, 279:1542). % Free PSA 50-64 yr 65-75 yr 0.00-10.00% 56% 55% 10.01-15.00% 24% 35% 15.01-20.00% 17% 23% 20.01-25.00% 10% 20% >25.00% 5% 9% Please note: Magen et al did not make specific recommendations regarding the use of percent free PSA for any other population of men. Urinalysis, Complete-[id number] Reviewed date:02/09/2025 09:32:34 AM Interpretation: Performing Lab:[facility], [address] [place] [address], Phone - [phone], Director - Prisca Notes/Report: Specific [place] 1.019 1.005-1.030 pH 6.5 5.0-7.5 Urine-Color Yellow Yellow Appearance Clear Clear WBC Esterase Trace Negative Protein Trace Negative/Trace Glucose Negative Negative Ketones Negative Negative Occult Blood Negative Negative Bilirubin Negative Negative Urobilinogen,Semi-Qn 1.0 0.2-1.0 mg/dL Nitrite, Urine Negative Negative Microscopic Examination See below: Micr oscopic was indicated and was performed. Microscopic Examination WBC None seen 0 - 5 /hpf RBC 0-2 0 - 2 /hpf Epithelial Cells (non renal) None seen 0 - 10 /hpf Epithelial Cells (renal) Casts None seen None seen /lpf Cast Type Crystals Crystal Type Mucus Threads Bacteria None seen None seen/Few Yeast Trichomonas Comment Ferritin-516321 Reviewed date:02/09/2025 09:32:34 AM Interpretation: Performing Lab:[facility], Phone - [phone], Director - Prisca Notes/Report: Ferritin 165 30-400 ng/mL Prealbumin-884872 Reviewed date:02/09/2025 09:32:34 AM Interpretation: Performing Lab:[facility], [address] [place] [address], Phone - [phone], Director - Prisca Notes/Report: Prealbumin 25 10-36 mg/dL Vitamin D, 94-Ftzgjow-796103 Reviewed date:02/09/2025 09:32:34 AM Interpretation: Performing Lab:[facility], [address] [place] [address], Phone - [phone], Director - Prisca Notes/Report: Vitamin D, 25-Hydroxy 11.2 30.0-100.0 ng/mL Vitamin D deficiency has been defined by the [place] [employer] and an Endocrine Society practice guideline as a level of serum 25-OH vitamin D less than 20 ng/mL (1,2). The Endocrine Society went on to further define vitamin D insufficiency as a level between 21 and 29 ng/mL (2). 1. IOM ([place] of [employer]). 2010. Dietary reference intakes for calcium and D. [place]: The National Academies Press. 2. Lidia MF, Heather [place], [place] HUTCHINSON, et al. Evaluation, treatment, and prevention of vitamin D deficiency: an Endocrine Society clinical practice guideline. JCEM. 2010; 96(7):1911-30. TSH+Free [id number] Reviewed date:02/09/2025 09:32:34 AM Interpretation: Performing Lab:[facility], Phone - [phone], Director - Prisca Notes/Report: TSH 4.980 0.450-4.500 uIU/mL T4,Free(Direct) 1.05 0.82-1.77 ng/dL Lipid Panel-[id number] Reviewed date:02/09/2025 09:32:34 AM Interpretation: Performing Lab:[facility], Phone - [phone], Director - Prisca Notes/Report: Cholesterol, Total 284 100-199 mg/dL Triglycerides 133 0-149 mg/dL HDL Cholesterol 51 >39 mg/dL VLDL Cholesterol Sean 24 5-40 mg/dL LDL Chol Calc ([facility]) 209 0-99 mg/dL LDL Calc Comment: Consider evaluating for Familial Hypercholesterolemia(FH), if clinically indicated. Comp. Metabolic Panel (13)-3 79965 Reviewed date:02/09/2025 09:32:34 AM Interpretation: Performing Lab[facility], [address] [place] [address], Phone - [phone], Director - MDJodry Notes/Report: Glucose 97 70-99 mg/dL BUN 14 8-27 mg/dL Creatinine 1.04 0.76-1.27 mg/dL eGFR 80 >59 mL/min/1.73 BUN/Creatinine Ratio 13 10-24 Sodium 138 134-144 mmol/L Potassium 4.7 3.5-5.2 mmol/L Chloride 99 96-106 mmol/L Carbon Dioxide, Total 21 20-29 mmol/L Calcium 9.4 8.6-10.2 mg/dL Protein, Total 7.3 6.0-8.5 g/dL Albumin 4.6 3.9-4.9 g/dL Globulin, Total 2.7 1.5-4.5 g/dL Bilirubin, Total 0.4 0.0-1.2 mg/dL Alkaline Phosphatase 85 44-121 IU/L AST (SGOT) 14 0-40 IU/L Vitamin B12 and Folate-58409 0 Reviewed date:02/09/2025 09:32:34 AM Interpretation: Performing Lab:[email or web address] [place], [address] [place] [address], Phone - [phone], Director - MDJodry Notes/Report: Vitamin B12 298 797-6270 pg/mL Folate (Folic Acid), Serum 3.8 >3.0 ng/mL A serum folate concentration of less than 3.1 ng/mL is considered to represent clinical deficiency. CBC with Diff, Platelet, NLR -[id number] Reviewed date:02/09/2025 09:32:34 AM Interpretation: Performing [facility] [place], [address] [place] [address], Phone - [phone], Director - MDJodry Notes/Report: WBC 7.4 3.4-10.8 x10E3/uL RBC 5.52 4.14-5.80 x10E6/uL Hemoglobin 17.0 13.0-17.7 g/dL Hematocrit 50.4 37.5-51.0 % MCV 91 79-97 fL MCH 30.8 26.6-33.0 pg MCHC 33.7 31.5-35.7 g/dL RDW 14.5 11.6-15.4 % Platelets 171 150-450 x10E3/uL Neutrophils 71 Not Estab. % Lymphs 18 Not Estab. % Monocytes 9 Not Estab. % Eos 1 Not Estab. % Basos 1 Not Estab. % Immature Cells Neutrophils (Absolute) 5.2 1.4-7.0 x10E3/uL Lymphs (Absolute) 1.4 0.7-3.1 x10E3/uL Neut/Lymph Ratio 3.7 0.0-2.9 ratio Published COVID-19 studies suggest: Low likelihood of severe COVID-19 disease progression 0.0-2.9 High likelihood of severe COVID-19 disease progression >4.9 Monocytes(Absolute) 0.7 0.1-0.9 x10E3/uL Eos (Absolute) 0.1 0.0-0.4 x10E3/uL Baso (Absolute) 0.0 0.0-0.2 x10E3/uL Immature Granulocytes 0 Not Estab. % Immature Grans (Abs) 0.0 0.0-0.1 x10E3/uL NRBC Hematology Comments: REASON FOR REFERRAL No Information MEDICATIONS Medication SIG (Take, Route, Frequency, Duration) Notes Start Date End Date Status Stiolto Respimat 2.5-2.5 MCG/ACT 2 puffs Inhalation Once a day Active Vitamin D3 125 MCG (5000 UT) 1 capsule Orally Once a day for 90 Days 08/19/2025 Active Proctosol HC 2.5 % 1 application to affected area Rectal Twice a day 04/08/2018 Active ProAir HFA 108 (90 Base) MCG/ACT 2 puffs as needed Inhalation every 6 hrs Active Vitamin B12 1000 MCG 1 tablet Orally Onc e a day for 90 Days Active CoQ10 200 MG 1 capsule with a fox l Orally Once a day Active QUEtiapine Fumarate 25 MG TAKE 1 TABLET BY MOUTH EVERYDAY AT BEDTIME for 90 Active Viagra 100 MG 1 tablet as needed Orally Once a day Active Megestrol Acetate 40 MG/ML SHAKE LIQUID AND TAKE 10 ML BY MOUTH TWICE DAILY for 90 Not-Taking Pantoprazole Sodium 40 MG 1 tablet Orall y Once a day Active clonazePAM 0.5 MG TAKE 1 TABLET BY FREDY TH TWICE A DAY NEEDED for 30 08/29/2025 Active Venlafaxine HCl ER 150 MG TAKE 1 CAPSULE BY MOUTH EVERY DAY WITH FOOD Active IMMUNIZATIONS Vaccine Route Administration Date Status Comme nts Td (adult) IM Intramuscular 08/19/2025 Administered Pneumococcal IM Intramuscular 11/14/2017 Administered Influenza (Fluvirin) IM Intramuscular 08/24/2013 Administe red Influenza (Fluvirin) IM Intramuscular 06/22/2014 Administe red Influenza (Fluvirin) IM Intramuscular 06/22/2015 Administe red Influenza (Fluvirin) IM Intramuscular 08/07/2016 Administe red Influenza (Flucelvax Quad) IM Intramuscular 07/26/2017 Adm inistered *Influenza (Fluarix Quad) IM Intramuscular 07/29/2018 Admi nistered *Influenza (Fluarix Quad) IM Intramuscular 06/30/2019 Admi nistered *Influenza (Fluarix Quad) IM Intramuscular 07/12/2020 Admi nistered *Influenza (Fluarix Quad) IM Intramuscular 07/07/2021 Admi nistered *Influenza (Fluarix Quad) IM Intramuscular 07/11/2022 Admi nistered *Influenza (Fluarix Quad) IM Intramuscular 07/07/2024 Admi nistered PROBLEMS Problem Type ICD Code Onset Dates Problem Status W/U Status Risk SNOMED Code Notes Problem Vitamin D deficiency (E55.9) Active confirmed Vitamin D deficiency (15796252) Problem Depression (F32.9) Active confirmed Dep ression (656784513) Problem Anxiety (F41.9) Active confirmed 029833 02 Problem Plantar fasciitis (M72.2) Active confirmed 045068879 Problem Loss of appetite (R63.0) Active confirmed 30586579 Problem Tobacco abuse (Z72.0) Active confirmed 01446809 Problem Anxiety disorder, unspecified (F41.9) Active confirmed Anxiety disorder (421997542) Problem Generalized anxiety disorder (F41.1) Active confirmed 65882173 Problem Primary insomnia (F51.01) Active confirmed 2722153 Problem Major depressive disorder, single episode, unspecified (F32.9) Active confirmed Major depression, single episode (37156159) Problem Mixed hyperlipidemia (E78.2) Active confirmed 953791711 Problem Chronic fatigue (R53.82) Active confirmed 67271762 Problem Erectile dysfunction, unspecified erectile dysfunction type (N52.9) Active confirmed 768204364 Problem Chronic obstructive pulmonary disease, unspecified COPD type (J44.9) Active confirmed 41148740 Problem Hemochromatosis, unspecified hemochromatosis type (E83.119) Active confirmed 540593676 Problem Severe episode of recurrent major depressive disorder, without psychotic features (F33.2) Active confirmed 56509694 Problem Moderate episode of recurrent major depressive disorder (F33.1) Active confirmed 857495551 Problem Cancer, 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) Active confirmed 343893775 VITAL SIGNS Heart Rate 80 /min 08/19/2025 Blood pressure diastolic 80 mm Hg 08/19/2025 Height 71 in 08/19/2025 Blood pressure systolic 120 mm Hg 08/19/2025 Weight 168 lbs 08/19/2025 BMI 23.43 kg/m2 08/19/2025 Encounters Encounter Location Date Provider Diagnosis [address] [address] 09/08/[address] [address] 10/15/2024 Filipe Duenas Major depressive disorder, single episode, unspecified F32.9 ; Postural hypotension I95.1 ; Loss of appetite R63.0 ; Mixed hyperlipidemia E78.2 ; Erectile dysfunction, unspecified erectile dysfunction type N52.9 ; Cancer, 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 ; Anxiety disorder, unspecified F41.9 ; Chronic obstructive pulmonary disease, unspecified COPD type J44.9 ; Primary insomnia F51.01 ; Anxiety F41.9 ; Chronic fatigue R53.82 ; Vitamin D deficiency E55.9 ; Tobacco abuse Z72.0 and Encounter for immunization Z23 [address] [address] 11/08/[address] [address] 11/11/2024 Filipe Duenas Major depressive disorder, single episode, unspecified F32.9 ; Postural hypotension I95.1 ; Loss of appetite R63.0 ; Mixed hyperlipidemia E78.2 ; Erectile dysfunction, unspecified erectile dysfunction type N52.9 ; Cancer, 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 ; Anxiety disorder, unspecified F41.9 ; Chronic obstructive pulmonary disease, unspecified COPD type J44.9 ; Primary insomnia F51.01 ; Anxiety F41.9 ; Chronic fatigue R53.82 ; Vitamin D deficiency E55.9 ; Tobacco abuse Z72.0 ; Screening for prostate cancer Z12.5 and Laboratory tests ordered as part of a complete physical exam (CPE) Z00.[address] [address] 12/07/2024 Filipe Duenas Anxiety disorder, unspecified F41.[address] [address] 02/09/2025 Filipe Duenas Major depressive disorder, single episode, unspecified F32.9 ; Mixed hyperlipidemia E78.2 ; Erectile dysfunction, unspecified erectile dysfunction type N52.9 ; Cancer, 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 ; Anxiety disorder, unspecified F41.9 ; Chronic obstructive pulmonary disease, unspecified COPD type J44.9 ; Primary insomnia F51.01 ; Anxiety F41.9 ; Chronic fatigue R53.82 ; Vitamin D deficiency E55.9 and Tobacco abuse Z72.[address] [address] 03/15/2025 Filipe Duenas Major depressive disorder, single episode, unspecified F32.9 ; Mixed hyperlipidemia E78.2 ; Erectile dysfunction, unspecified erectile dysfunction type N52.9 ; Cancer, 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 ; Anxiety disorder, unspecified F41.9 ; Chronic obstructive pulmonary disease, unspecified COPD type J44.9 ; Primary insomnia F51.01 ; Anxiety F41.9 ; Chronic fatigue R53.82 ; Vitamin D deficiency E55.9 and Tobacco abuse Z72.[address] [address] 03/29/2025 Filipe Duenas Major depressive disorder, single episode, unspecified F32.[address] [address] 04/14/2025 Filipe Duenas Major depressive disorder, single episode, unspecified F32.9 ; Mixed hyperlipidemia E78.2 ; Erectile dysfunction, unspecified erectile dysfunction type N52.9 ; Cancer, 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 ; Anxiety disorder, unspecified F41.9 ; Chronic obstructive pulmonary disease, unspecified COPD type J44.9 ; Primary insomnia F51.01 ; Anxiety F41.9 ; Chronic fatigue R53.82 ; Vitamin D deficiency E55.9 and Tobacco abuse Z72.[address] [address] 05/12/2025 Filipe Duenas Major depressive disorder, single [...] abuse Z72.0 and Vitamin B12 deficiency E53.[address] [address] 06/17/2025 Filipe Duenas Anxiety disorder, unspecified F41.[address] [address] 06/24/2025 Filipe Duenas Anxiety disorder, unspecified F41.[address] [address] 08/11/[address] [address] 08/19/2025 Filipe Duenas Major depressive disorder, single [...] Notes Treatment Clinical Notes Section Notes 03/15/2025 Mixed hyperlipidemia (ICD-10 - E78.2) 03/15/2025 Major depressive disorder, single episode, unspecified (ICD-10 - F32.9) 12/07/2024 Anxiety disorder, unspecified (ICD-10 - F41.9) 02/09/2025 Mixed hyperlipidemia (ICD-10 - E78.2) 02/09/2025 Major depressive disorder, single episode, unspecified (ICD-10 - F32.9) 11/11/2024 Major depressive disorder, single episode, unspecified (ICD-10 - F32.9) 10/15/2024 Major depressive disorder, single episode, unspecified (ICD-10 - F32.9) 08/19/2025 Mixed hyperlipidemia (ICD-10 - E78.2) 08/19/2025 Major depressive disorder, single episode, unspecified (ICD-10 - F32.9) 06/24/2025 Anxiety disorder, unspecified (ICD-10 - F41.9) 06/17/2025 Anxiety disorder, unspecified (ICD-10 - F41.9) 05/12/2025 Mixed hyperlipidemia (ICD-10 - E78.2) 05/12/2025 Major depressive disorder, single episode, unspecified (ICD-10 - F32.9) 03/29/2025 Major depressive disorder, single episode, unspecified (ICD-10 - F32.9) 04/14/2025 Major depressive disorder, single episode, unspecified (ICD-10 - F32.9) 04/14/2025 Mixed hyperlipidemia (ICD-10 - E78.2) 02/09/2025 Erectile dysfunction, unspecified erectile dysfunction type (ICD-10 - N52.9) 11/11/2024 Postural hypotension (ICD-10 - I95.1) 11/11/2024 Loss of appetite (ICD-10 - R63.0) 03/15/2025 Erectile dysfunction, unspecified erectile dysfunction type (ICD-10 - N52.9) 10/15/2024 Postural hypotension (ICD-10 - I95.1) 04/14/2025 Erectile dysfunction, unspecified erectile dysfunction type (ICD-10 - N52.9) 05/12/2025 Erectile dysfunction, unspecified erectile dysfunction type (ICD-10 - N52.9) 08/19/2025 Erectile dysfunction, unspecified erectile dysfunction type (ICD-10 - N52.9) 03/15/2025 Cancer, epiglottis (ICD-10 - C32.1) 08/19/2025 Cancer, epiglottis (ICD-10 - C32.1) 04/14/2025 Cancer, epiglottis (ICD-10 - C32.1) 05/12/2025 Cancer, epiglottis (ICD-10 - C32.1) 10/15/2024 Loss of appetite (ICD-10 - R63.0) 11/11/2024 Mixed hyperlipidemia (ICD-10 - E78.2) 02/09/2025 Cancer, epiglottis (ICD-10 - C32.1) 08/19/2025 Anxiety disorder, unspecified (ICD-10 - F41.9) 02/09/2025 Anxiety disorder, unspecified (ICD-10 - F41.9) 05/12/2025 Anxiety disorder, unspecified (ICD-10 - F41.9) 10/15/2024 Mixed hyperlipidemia (ICD-10 - E78.2) 04/14/2025 Anxiety disorder, unspecified (ICD-10 - F41.9) 03/15/2025 Anxiety disorder, unspecified (ICD-10 - F41.9) 11/11/2024 Erectile dysfunction, unspecified erectile dysfunction type (ICD-10 - N52.9) 08/19/2025 Chronic obstructive pulmonary disease, unspecified COPD type (ICD-10 - J44.9) 03/15/2025 Chronic obstructive pulmonary disease, unspecified COPD type (ICD-10 - J44.9) 02/09/2025 Chronic obstructive pulmonary disease, unspecified COPD type (ICD-10 - J44.9) 05/12/2025 Chronic obstructive pulmonary disease, unspecified COPD type (ICD-10 - J44.9) 04/14/2025 Chronic obstructive pulmonary disease, unspecified COPD type (ICD-10 - J44.9) 11/11/2024 Cancer, epiglottis (ICD-10 - C32.1) 10/15/2024 Erectile dysfunction, unspecified erectile dysfunction type (ICD-10 - N52.9) 10/15/2024 Cancer, epiglottis (ICD-10 - C32.1) 11/11/2024 Anxiety disorder, unspecified (ICD-10 - F41.9) 02/09/2025 Primary insomnia (ICD-10 - F51.01) 08/19/2025 Primary insomnia (ICD-10 - F51.01) 03/15/2025 Primary insomnia (ICD-10 - F51.01) 04/14/2025 Primary insomnia (ICD-10 - F51.01) 05/12/2025 Primary insomnia (ICD-10 - F51.01) 08/19/2025 Anxiety (ICD-10 - F41.9) 05/12/2025 Anxiety (ICD-10 - F41.9) 04/14/2025 Anxiety (ICD-10 - F41.9) 10/15/2024 Anxiety disorder, unspecified (ICD-10 - F41.9) 03/15/2025 Anxiety (ICD-10 - F41.9) 02/09/2025 Anxiety (ICD-10 - F41.9) 11/11/2024 Chronic obstructive pulmonary disease, unspecified COPD type (ICD-10 - J44.9) 04/14/2025 Chronic fatigue (ICD-10 - R53.82) 03/15/2025 Chronic fatigue (ICD-10 - R53.82) 05/12/2025 Chronic fatigue (ICD-10 - R53.82) 02/09/2025 Chronic fatigue (ICD-10 - R53.82) 11/11/2024 Primary insomnia (ICD-10 - F51.01) 08/19/2025 Chronic fatigue (ICD-10 - R53.82) 10/15/2024 Chronic obstructive pulmonary disease, unspecified COPD type (ICD-10 - J44.9) 08/19/2025 Vitamin D deficiency (ICD-10 - E55.9) 05/12/2025 Vitamin D deficiency (ICD-10 - E55.9) 04/14/2025 Vitamin D deficiency (ICD-10 - E55.9) 03/15/2025 Vitamin D deficiency (ICD-10 - E55.9) 02/09/2025 Vitamin D deficiency (ICD-10 - E55.9) 11/11/2024 Anxiety (ICD-10 - F41.9) 10/15/2024 Primary insomnia (ICD-10 - F51.01) 08/19/2025 Vitamin B12 deficiency (ICD-10 - E53.8) 11/11/2024 Chronic fatigue (ICD-10 - R53.82) 05/12/2025 Tobacco abuse (ICD-10 - Z72.0) 02/09/2025 Tobacco abuse (ICD-10 - Z72.0) 03/15/2025 Tobacco abuse (ICD-10 - Z72.0) 04/14/2025 Tobacco abuse (ICD-10 - Z72.0) 10/15/2024 Anxiety (ICD-10 - F41.9) 08/19/2025 Tobacco abuse (ICD-10 - Z72.0) 05/12/2025 Vitamin B12 deficiency (ICD-10 - E53.8) 10/15/2024 Chronic fatigue (ICD-10 - R53.82) 11/11/2024 Vitamin D deficiency (ICD-10 - E55.9) 10/15/2024 Vitamin D deficiency (ICD-10 - E55.9) 11/11/2024 Tobacco abuse (ICD-10 - Z72.0) 08/19/2025 Encounter for immunization (ICD-10 - Z23) 10/15/2024 Tobacco abuse (ICD-10 - Z72.0) 11/11/2024 Screening for prostate cancer (ICD-10 - Z12.5) 10/15/2024 Encounter for immunization (ICD-10 - Z23) 11/11/2024 Laboratory tests ordered as part of a complete physical exam (CPE) (ICD-10 - Z00.00) 10/15/2024 Other This chart has been transcribed by a computerized dictation system. There are likely to be multiple novelty dipper inaccuracies despite chart review. 11/11/2024 Other This chart has been transcribed by a computerized dictation system. There are likely to be multiple novelty dipper inaccuracies despite chart review. 02/09/2025 Other This chart has been transcribed by a computerized dictation system. There are likely to be multiple novelty dipper inaccuracies despite chart review. 03/15/2025 Other This chart has been transcribed by a computerized dictation system. There are likely to be multiple novelty dipper inaccuracies despite chart review. 04/14/2025 Other This chart has been transcribed by a computerized dictation system. There are likely to be multiple novelty dipper inaccuracies despite chart review. 05/12/2025 Other This chart has been transcribed by a computerized dictation system. 08/19/2025 Other This chart has been transcribed by a computerized dictation system. PLAN OF TREATMENT Pending Test Test Name Order Date X ray : Knee, right 11/18/2018 X ray : Shoulder, left 03/10/2019 X ray : Rib series, left 01/28/2013 Chest X-ray PA and lateral 01/28/2013 Chest X-ray PA and lateral 02/03/2013 GUAIAC, SINGLE SPECIMEN 02/18/2017 GUAIAC, SINGLE SPECIMEN 01/08/2013 *SPIROMETRY 09/21/2014 *SPIROMETRY 11/24/2012 *SPIROMETRY 03/17/2018 *SPIROMETRY 11/21/2016 Polysomnogram 03/17/2018 FOLIC ACID 06/07/2021 IRON & TIBC 06/07/2021 PROBNP 06/07/2021 PSA 06/22/2014 PSA 06/07/2021 PSA 08/07/2016 VITAMIN B12 06/07/2021 COMPREHENSIVE METABOLIC PANL 06/07/2021 COMPREHENSIVE METABOLIC PANL 08/07/2016 COMPREHENSIVE METABOLIC PANL 06/22/2014 LIPID PANEL 06/22/2014 LIPID PANEL 06/07/2021 LIPID PANEL 08/07/2016 THYROID PANEL 08/07/2016 THYROID PANEL 06/22/2014 THYROID PANEL 06/07/2021 LH 06/07/2021 25OH VITAMIN D 06/07/2021 25OH VITAMIN D 06/22/2014 25OH VITAMIN D 08/07/2016 FREE TESTOSTERONE 06/07/2021 COMPLETE CBC WITH DIFF 06/07/2021 COMPLETE CBC WITH DIFF 06/22/2014 COMPLETE CBC WITH DIFF 08/07/2016 SEDIMENTATION RATE 06/07/2021 C-REACTIVE PROTEIN 06/07/2021 PREALBUMIN 06/07/2021 LYME AB 11/18/2018 URINE DIPSTICK 06/22/2014 COMPLETE URINALYSIS 06/07/2021 COMPLETE URINALYSIS 08/07/2016 COMPLETE URINALYSIS 11/21/2016 COMPLETE URINALYSIS 07/26/2017 25OH VITAMIN D 11/22/2022 CATECHOLAMINES, FRACTIONATED, BLOOD 08/14 CATECHOLAMINES, URINE, RANDOM 08/30/2023 CBC (COMPLETE BLOOD COUNT) WITH DIFF 06/2023 CBC (COMPLETE BLOOD COUNT) WITH DIFF COMPREHENSIVE METABOLIC PANEL 11/22/2022 COMPREHENSIVE METABOLIC PANEL 08/30/2023 ELECTROPHORESIS, PROTEIN, RANDOM URINE 1 10/30/2022 ELECTROPHORESIS, SERUM 08/30/2023 FOLIC ACID 11/22/2022 HEPATIC FUNCTION PANEL 01/23/2022 HEPATIC FUNCTION PANEL 03/14/2022 IRON AND TIBC 11/22/2022 LH 11/22/2022 LH 03/25/2023 LIPID PANEL 01/23/2022 LIPID PANEL 11/22/2022 LIPID PANEL 03/14/2022 PREALBUMIN 08/30/2023 PSA, SCREEN 11/22/2022 TESTOSTERONE, FREE, TOTAL AND BOUND 06/2023 TESTOSTERONE, FREE, TOTAL AND BOUND 03/14 THYROID PANEL (TSH, FT4) 08/30/2023 THYROID PANEL (TSH, FT4) 11/22/2022 URINALYSIS, COMPLETE 11/22/2022 CT Abdomen and Pelvis W+W/O Contrast PSA Total+% Free-[id number] 08/19/2025 Phosphorus-[id number] 08/19/2025 Iron and TIBC-[id number] 08/19/2025 Magnesium-261728 08/19/2025 Urinalysis, Complete-[id number] 08/19/2025 Ferritin-555741 08/19/2025 Vitamin D, 36-Caiolfs-461845 08/19/2025 TSH+Free [id number] 08/19/2025 Comp. Metabolic Panel [phone] 2024 Vitamin B12 and Folate-354912 08/19/2025 CBC with Diff, Platelet, [id number] 03/2025 Next Appt Details Provider Name:Filipe covarrubias, 11/18/2025 03:45:00 PM, [address] [place] [address], [phone], Insurance Providers Payer Name Payer Address Payer Phone Subscriber Number Group Number Insured Name Patient Relationship to Insured Coverage Start Date Coverage End Date [facility] [address] [place] [address] [id number] Andrew Mckeon Self - patient is the insured MEDICATIONS ADMINISTERED Medication Instructions Date of Administration Dosage Notes B12 02/09/2025 1 mL B12 03/15/2025 1.0 mL B12 04/14/2025 1.0 mL B12 08/19/2025 1.0 mL MEDICAL (GENERAL) HISTORY Medical History History ICD Code Hyperlipidemia Anxiety Depression Insomnia COPD Surgical History Surgery Date(Month/Year)
== END 2025-09-01 15:05 | disposition home or self-care (01) ==
PROVIDERS: Visit Provider Nurse Practitioner Family
DX: S00.552A Superficial foreign body of oral cavity, initial encounter (principal)

== ENCOUNTER → 2025-09-01 14:07 | Outpatient (BNVA) | payer MEDICARE, SELFPAY | DX: S00.552A Superficial foreign body of oral cavity, initial encounter (principal) | CPT/HCPCS: 99212 ==